=== PATIENT | male | born 1995 | race Two or more races ===

== ENCOUNTER 2017-09-20 17:53 | Emergency (ER) | payer MEDICAID ==
[~2017-09-20] VITALS: Ht 170.2 cm; Wt 72.6 kg
[2017-09-20] MEDS ORDERED: ZYPREXA (18:13)
--- NOTE | 2017-09-20 19:15 | NUR ---
REPORT RECIEVED FROM SUKI COTTER. ASSUMING CARE AT THIS TIME.
--- NOTE | 2017-09-20 19:20 | NUR ---
ASHWINI DOOLEY AT BEDSIDE FOR MSE
--- NOTE | 2017-09-20 19:29 | NUR ---
Kavon with crisis team called to evaluate pt.
[2017-09-20] MEDS ORDERED: OLANZAPINE 5 MG TABLET PO ONE (19:30)
--- NOTE | 2017-09-20 19:41 | NUR ---
Kavon at bedside for evaluation
[2017-09-20 19:48] LABS: BASOPHILS # (AUTO) 0.1 K/uL (0.0-8.0); BASOPHILS % (AUTO) 0.5 % (0.0-2.0); HEMATOCRIT 44.7 % (36.7-47.1); HEMOGLOBIN 15.8 g/dL (12.5-16.3); LYMPHOCYTES # (AUTO) 1.4 K/uL (20.0-40.0); LYMPHOCYTES % (AUTO) 11.4 % (20.5-51.5); MEAN CORPUSCULAR HEMOGLOBIN 31.3 uug (23.8-33.4); MEAN CORPUSCULAR HGB CONC 35 g/dL (32.5-36.3); MEAN CORPUSCULAR VOLUME 88.6 fL (73.0-96.2); MONOCYTES # (AUTO) 0.9 K/uL (2.0-10.0); MONOCYTES % (AUTO) 7.3 % (0.0-11.0); NEUTROPHILS # (AUTO) 9.5 K/uL (1.8-8.9); NEUTROPHILS % (AUTO) 80.8 % (38.5-71.5); PLATELET COUNT (AUTO) 292 K/uL (152-348); RED BLOOD CELL COUNT(AUTO) 5.04 MIL/uL (4.06-5.63); WHITE BLOOD COUNT (AUTO) 11.8 K/uL (3.6-10.2)
--- NOTE | 2017-09-20 19:50 | NUR ---
CALL MADE TO PHARMACY TO [facility]
[2017-09-20 19:51] LABS: CARBON DIOXIDE 29 mmol/L (21-32); CHLORIDE 104 mmol/L (98-107); CREATININE 1.1 mg/dL (0.6-1.3); GLUCOSE 96 mg/dL (74-106); POTASSIUM 3.6 mmol/L (3.5-5.1); UREA NITROGEN, BLOOD 8 mg/dL (7-18)
[2017-09-20 19:58] LABS: ETHANOL < 3 MG/DL (0-0)
[2017-09-20 20:03] LABS: ALANINE AMINOTRANSFERASE 41 U/L (16-63); ALKALINE PHOSPHATASE 97 U/L (50-136); ASPARTATE AMINOTRANSFERASE 22 U/L (15-37); BILIRUBIN,DIRECT 0.1 mg/dL (0.0-0.2); BILIRUBIN,TOTAL 0.4 mg/dL (0.2-1.0); TOTAL PROTEIN, SERUM 7.9 g/dL (6.4-8.2)
[2017-09-20 20:07] LABS: *AMPHETAMINE, URINE POSITIVE (NEGATIVE); *BARBITURATE, URINE NEGATIVE (NEGATIVE); *CANNABINOID, URINE POSITIVE (NEGATIVE); *COCCAINE, URINE NEGATIVE (NEGATIVE); *OPIATE, URINE NEGATIVE (NEGATIVE); *PHENCYCLIDINE SCREEN,URINE NEGATIVE (NEGATIVE)
--- NOTE | 2017-09-20 20:28 | NUR ---
Patient discharged to home in stable conditon. Written and verbal after care instructions given. Patient verbalizes understanding of instructions. VSS. ALL BELONGINGS W/ PT. AMBULATED FROM ER W/ STEADY GAIT.
[2017-09-20 20:30] VITALS: BP 110/54
== END 2017-09-20 20:31 | disposition home or self-care (01) ==
LOC: ER 17:53
DX: F20.9 Schizophrenia, unspecified (principal); F15.10 Other stimulant abuse, uncomplicated; F41.9 Anxiety disorder, unspecified
CPT/HCPCS: 36415; 80307; 85025; A4663; G0480